=== PATIENT | female | born 1995 | race Caucasian/White ===

== ENCOUNTER 2021-09-06 15:36 | Emergency (ER) | payer MEDICAID, OTHER ==
[~2021-09-06] VITALS: Ht 157.5 cm; Wt 94.1 kg
[2021-09-06 16:34] LABS: BASOPHILS % (AUTO) 0.3 % (0-1); EOSINOPHILS # (AUTO) 0.5 X10'3 (0-0.9); EOSINOPHILS % (AUTO) 3.2 % (0-6); HEMATOCRIT 43.3 % (35.0-45.0); HEMOGLOBIN 14.5 g/dl (12.0-16.0); LYMPHOCYTES # (AUTO) 3.1 X10'3 (1.1-4.8); LYMPHOCYTES % (AUTO) 20.9 % (21-51); MEAN CORPUSCULAR HEMOGLOBIN 31.3 PG (27.0-31.0); MEAN CORPUSCULAR HGB CONC 33.4 g/dL (33.0-36.5); MEAN CORPUSCULAR VOLUME 93.9 FL (78-98); MEAN PLATELET VOLUME 9.7 FL (7.4-10.4); MONOCYTES # (AUTO) 0.8 X10'3 (0-0.9); MONOCYTES % (AUTO) 5.3 % (2-12); NEUTROPHILS # (AUTO) 10.4 X10'3 (1.8-7.7); NEUTROPHILS % (AUTO) 70.3 % (42-75); PLATELET COUNT 267 X10'3 (140-440); RED BLOOD COUNT 4.62 X10'6 (4.20-5.60); WHITE BLOOD COUNT 14.7 X10'3 (4.5-11.0)
[2021-09-06 16:44] LABS: HCG SERUM QL POSITIVE
[2021-09-06 16:58] LABS: ALANINE AMINOTRANSFERASE 29 U/L (12-78); ALBUMIN 3.8 G/DL (3.4-5.0); ALKALINE PHOSPHATASE 65 IU/L (46-116); ANION GAP 8 (8-16); ASPARTATE AMINO TRANSFERASE 16 U/L (10-37); BILIRUBIN,TOTAL 0.6 MG/DL (0.1-1.0); BLOOD UREA NITROGEN 6 MG/DL (7-18); BUN/CREATININE RATIO 12.5 (6.6-38.0); CALCIUM 9.3 MG/DL (8.5-10.1); CHLORIDE 104 MMOL/L (99-107); CREATININE 0.48 MG/DL (0.40-0.90); GLUCOSE 97 MG/DL (70-104); POTASSIUM 4.1 MMOL/L (3.5-5.1); SODIUM 139 MMOL/L (135-145); TOTAL CARBON DIOXIDE 26.6 MMOL/L (24-32); TOTAL PROTEIN 7.5 G/DL (6.4-8.2); eGFR > 90 ML/MIN
[2021-09-06 17:26] LABS: BETA HCG,QUANTITATIVE 15836 mIU/ml
[2021-09-06 18:22] LABS: CLARITY,URINE CLEAR (Clear); COLOR,URINE YELLOW (Yellow); GLUCOSE, URINE NEGATIVE (Neg); KETONES,URINE NEGATIVE (Neg); LEUKOCYTE ESTERASE ,URINE SMALL (Neg); NITRITES, URINE NEGATIVE (Neg); OCCULT BLOOD,URINE LARGE (Neg); PROTEIN,URINE NEGATIVE (Neg); UROBILINOGEN,URINE 0.2 E.U/dL (0.2-1.0)
[2021-09-06 18:26] LABS: UA COLLECTION TYPE CLN CATCH MIDSTREAM
[2021-09-06 18:41] LABS: BACTERIA,URINE FEW /HPF (Neg); MUCUS STRANDS FEW /LPF (Neg); SQUAMOUS EPITHELIAL CELL,UR MODERATE /LPF (FEW)
[2021-09-06 18:42] LABS: TRANSITIONAL EPI CELLS,URINE FEW /HPF
--- NOTE | 2021-09-06 20:18 | NUR ---
PHONE CALL FROM KRISTIN MERCHANT FROM [facility] TO GET INFORMATION ON PT FOR TRANSFER. SHE STATES SHE WILL CALL BACK ABOUT A BED.
--- NOTE | 2021-09-06 20:55 | NUR ---
LARY FROM [facility] CALLED FOR AN UPDATE
--- NOTE | 2021-09-06 21:09 | NUR ---
PATIENT C/O VAGINAL BLEED X 1 MONTH, DENIES PAIN. TOLD WITH 24HRS. . [facility] 07/09/2021. AWAITING TRANSFER [facility].
--- NOTE | 2021-09-06 23:15 | NUR ---
Patient aware of ETA 1 hr by [employer].
[2021-09-07 00:41] VITALS: BP 106/59
== END 2021-09-07 00:52 | disposition hospice, inpatient (51) ==
LOC: ER 15:37
DX: O20.8 Other hemorrhage in early pregnancy (principal); Z20.822 Contact with and (suspected) exposure to COVID-19; Z3A.01 Less than 8 weeks gestation of pregnancy
CPT/HCPCS: 36415; 76817; 80053; 81001; 84702; 84703; 85025; 86900; 86901; 87088; 87635; 99285; C9803

== ENCOUNTER 2022-12-11 12:28 | Emergency (ER) | payer MEDICAID ==
[~2022-12-11] VITALS: Ht 157.5 cm; Wt 92.6 kg
[2022-12-11 13:27] LABS: BASOPHILS % (AUTO) 0.3 % (0-1); EOSINOPHILS # (AUTO) 0.4 X10'3 (0-0.9); EOSINOPHILS % (AUTO) 5.2 % (0-6); HEMATOCRIT 43.7 % (35.0-45.0); HEMOGLOBIN 14.5 g/dl (12.0-16.0); LYMPHOCYTES # (AUTO) 2.1 X10'3 (1.1-4.8); LYMPHOCYTES % (AUTO) 27.6 % (21-51); MEAN CORPUSCULAR HEMOGLOBIN 30.7 PG (27.0-31.0); MEAN CORPUSCULAR HGB CONC 33.1 g/dL (33.0-36.5); MEAN CORPUSCULAR VOLUME 92.6 FL (78-98); MEAN PLATELET VOLUME 9.5 FL (7.4-10.4); MONOCYTES # (AUTO) 0.3 X10'3 (0-0.9); MONOCYTES % (AUTO) 3.9 % (2-12); NEUTROPHILS # (AUTO) 4.9 X10'3 (1.8-7.7); PLATELET COUNT 256 X10'3 (140-440); RED BLOOD COUNT 4.72 X10'6 (4.20-5.60); WHITE BLOOD COUNT 7.8 X10'3 (4.5-11.0)
[2022-12-11 13:42] LABS: ALANINE AMINOTRANSFERASE 96 U/L (12-78); ALBUMIN 3.6 G/DL (3.4-5.0); ALBUMIN/GLOBULIN RATIO 1.1 (1.1-1.5); ALKALINE PHOSPHATASE 95 IU/L (46-116); ANION GAP 10 (8-16); ASPARTATE AMINO TRANSFERASE 36 U/L (10-37); BILIRUBIN,TOTAL 0.3 MG/DL (0.1-1.0); BLOOD UREA NITROGEN 7 MG/DL (7-18); BUN/CREATININE RATIO 11.3 (10.0-20.0); CHLORIDE 106 MMOL/L (99-107); CREATININE 0.62 MG/DL (0.40-0.90); GLUCOSE 98 MG/DL (70-104); LIPASE 76 U/L (73-393); POTASSIUM 3.6 MMOL/L (3.5-5.1); SODIUM 144 MMOL/L (135-145); TOTAL CARBON DIOXIDE 28.5 MMOL/L (24-32); eGFR > 90 ML/MIN
[2022-12-11 13:49] LABS: CLARITY,URINE CLEAR (Clear); COLOR,URINE YELLOW (Yellow); GLUCOSE, URINE NEGATIVE (Neg); KETONES,URINE NEGATIVE (Neg); LEUKOCYTE ESTERASE ,URINE NEGATIVE (Neg); NITRITES, URINE NEGATIVE (Neg); OCCULT BLOOD,URINE NEGATIVE (Neg); PROTEIN,URINE NEGATIVE (Neg); UROBILINOGEN,URINE 0.2 E.U/dL (0.2-1.0)
[2022-12-11 13:50] LABS: UA COLLECTION TYPE CLN CATCH MIDSTREAM
[2022-12-11 13:51] LABS: URINE HCG NEGATIVE (NEG)
--- NOTE | 2022-12-11 17:06 | NUR ---
Patient arrived to ER bed 1 with her infant (1.5 months old). deburr technician currently at bedside
--- NOTE | 2022-12-11 17:20 | NUR ---
Pateint holding her baby next to her. Patient was advised to watch her baby and that if she feel too sleepy she can put her baby on a car seat and buckled up so the baby don't fall. Patient verbalized understanding
[2022-12-11 17:31] VITALS: BP 99/52
== END 2022-12-11 18:11 | disposition home or self-care (01) ==
LOC: ER 12:28
DX: K80.20 Calculus of gallbladder without cholecystitis without obstruction (principal)
CPT/HCPCS: 36415; 76700; 80053; 81003; 81025; 83690; 85025; 99284

== ENCOUNTER 2023-03-02 00:40 | Emergency (ER) | payer MEDICAID ==
[~2023-03-02] VITALS: Ht 157.5 cm; Wt 92.7 kg
[2023-03-02 00:46] VITALS: BP 145/97; PULSE 72; RESP 16; O2SAT 98
[2023-03-02 01:20] LABS: URINE HCG NEGATIVE (NEG)
[2023-03-02 01:23] LABS: BILIRUBIN,URINE SMALL (Neg); GLUCOSE, URINE NEGATIVE (Neg); KETONES,URINE NEGATIVE (Neg); LEUKOCYTE ESTERASE ,URINE NEGATIVE (Neg); NITRITES, URINE NEGATIVE (Neg); OCCULT BLOOD,URINE NEGATIVE (Neg); PH,URINE 6.5 (4.8-8.0); PROTEIN,URINE TRACE mg/dl (Neg)
[2023-03-02 01:27] LABS: MEAN PLATELET VOLUME 10.1 FL (7.4-10.4)
[2023-03-02 01:28] LABS: ALANINE AMINOTRANSFERASE 167 U/L (12-78); ALBUMIN/GLOBULIN RATIO 1.1 (1.1-1.5); ALKALINE PHOSPHATASE 115 IU/L (46-116); ANION GAP 6 (8-16); ASPARTATE AMINO TRANSFERASE 122 U/L (10-37); BILIRUBIN,TOTAL 0.5 MG/DL (0.1-1.0); BLOOD UREA NITROGEN 18 MG/DL (7-18); BUN/CREATININE RATIO 26.9 (10.0-20.0); CALCIUM 9.4 MG/DL (8.5-10.1); CHLORIDE 104 MMOL/L (99-107); CREATININE 0.67 MG/DL (0.40-0.90); GLUCOSE 99 MG/DL (70-104); LIPASE 79 U/L (73-393); POTASSIUM 3.4 MMOL/L (3.5-5.1); SODIUM 141 MMOL/L (135-145); TOTAL PROTEIN 7.6 G/DL (6.4-8.2); eCRCL 99 ML/MIN; eGFR > 90 ML/MIN
[2023-03-02 01:29] LABS: HEMATOCRIT 43.3 % (35.0-45.0); HEMOGLOBIN 14.9 g/dl (12.0-16.0); MEAN CORPUSCULAR HGB CONC 34.4 g/dL (33.0-36.5); MEAN CORPUSCULAR VOLUME 93.1 FL (78-98); PLATELET COUNT 261 X10'3 (140-440); RED BLOOD COUNT 4.65 X10'6 (4.20-5.60); RED CELL DISTRIBUTION WIDTH 13.5 % (11.5-14.5)
[2023-03-02 01:33] LABS: CLARITY,URINE SLIGHTLY CLOUDY (Clear); COLOR,URINE DARK YELLOW (Yellow); UA COLLECTION TYPE CLN CATCH MIDSTREAM
[2023-03-02 01:40] LABS: BACTERIA,URINE FEW /HPF (Neg); MUCUS STRANDS FEW /LPF (Neg); SQUAMOUS EPITHELIAL CELL,UR FEW /LPF (FEW)
[2023-03-02 02:51] LABS: LARGE PLATELETS FEW; PLATELET ESTIMATE NORMAL; TOTAL CELLS COUNTED 100
== END 2023-03-02 05:50 | disposition left against medical advice (07) ==
LOC: ER 00:40
DX: R10.9 Unspecified abdominal pain (principal); Z53.21 Procedure and treatment not carried out due to patient leaving prior to being seen by health care provider
CPT/HCPCS: 36415; 80053; 81001; 81025; 83690; 85007; 85025; 87088; 99281

== ENCOUNTER → 2023-12-06 | Outpatient (CLI) | payer MEDICAID | END | disposition home or self-care (01) | LOC: RAD 15:55 | PROVIDERS: ATTEND Nurse Practitioner Obstetrics & Gynecology | DX: O09.92 Supervision of high risk pregnancy, unspecified, second trimester (principal); Z3A.25 25 weeks gestation of pregnancy | CPT/HCPCS: 76811 ==

== ENCOUNTER 2025-01-17 14:27 | Emergency (ER) | payer MEDICAID, SELFPAY ==
[~2025-01-17] VITALS: Ht 157.5 cm; Wt 104.3 kg
[2025-01-17 14:37] VITALS: BP 123/73; PULSE 83; RESP 16; TEMP 98.1; O2SAT 99
--- NOTE | 2025-01-17 14:47 | Physician Documentation ---
History of Present Illness ~ Chief Complaint: Ear Pain Stated Complaint: EAR PAIN Time Seen by MD: 14:42 OK to notify your PCP?: Yes Primary Medical Doctor: n/a Source: patient Mode of Arrival: POV Exam Limitations: no limitations HPI 29-year-old female presents with bilateral ear pain and a sensation that she feels under water with her hearing for the past few days. She is recently getting over an upper respiratory illness and still has some sinus congestion. She has not tried any medications [id number] for her symptoms. As knee fe vers or any discharge out of her ears. Also has not been swimming lately. Medication Reconciliation Allergies: Coded Allergies: No Known Allergies (Unverified , 03/02/23) Past Medical History Past Medical History: *RENAL/* Past Surgical History: other Other Past Surgical History: Left oopherectomy Alcohol Use: None Drug Use: none Lives with: Family Lives In: Home Review of Systems All Other Systems at this time: Reviewed and Negative Physical Exam Vital Signs: RN Vital Signs have been reviewed: Yes, Temperature: 98.1, Source: Temporal, Heart Rate: 83, Respiratory Rate: 16, BP: 123/73, Pulse Oximetry: 99, Weight: 104.300 Oxygen Flow Rate: 0 Pulse Oximetry Reflects: adequate oxygenation Physical Exam General: Alert, no distress. HEENT: No injection, moist mucous membranes. Bilateral TM bulging, but clear fluid. No erythema or external drainage. Neck: Full range of motion. Respiratory: No respiratory distress, equal chest rise and fall. Chest: No accessory muscle use. Cardiovascular: Regular rate and rhythm. Gastrointestinal: Nondistended. Extremities: Normal range of motion, no deformity. Neurologic: Oriented x4. Psychiatric: Normal mood and affect. Skin: Normal color, warm and dry. Progress Results/Orders Results/Orders Vital Signs 01/17/25 14:37 Temp 98.1 Pulse 83 Resp 16 B/P (MAP) 123/73 Pulse Ox 99 O2 Flow Rate 0 Medical Decision Making Additional info obtained from: old records Findings 29-year-old female presents with bilateral ear pain and fullness after recent viral illness. Physical exam shows bilateral otitis media with effusion but no signs or symptoms of infection. We discussed that there is no indication for antibiotics at this time and that this can take up to 6-12 weeks to fully resolve. She does not have any Flonase at home so I sent a prescription for Daniel nase to her pharmacy. She should follow up with her primary care provider within the next week and return back here for any new or worsening symptoms. Departure Disposition: 01 HOME / SELF CARE / HOMELESS Impression: Primary Impression: Bilateral otitis media with effusion Discharge Instructions: Otitis Media, Adult Additional Instructions: As discussed it can take 6-12 weeks for the fluid in ears to fully resolve go back to normal levels. Please follow up with her primary care provider in the next week and return back here for any new or worsening symptoms. Use the Flonase to help decrease the inflammation and allow this fluid to drain quicker. If you notice that you having any fevers, worsening hearing, worsening ear pain, please be seen immediately. Referrals: NO PRIMARY CARE PROVIDER (PCP) Prescriptions Fluticasone Propionate (Flonase) 16 Gm [place].susp 2 SPRAYS BOTHNARES DAILY for 30 Days, #16 GM Prov: NADEGE WARREN 01/17/25 Education Educated: Patient Educated regarding: diagnosis, treatment, prognosis, need for follow up Additional Comment Medical Screen Exam This patient recieved a medical screening examination. After reviewing the individual's medical complaints with presenting symptoms and performing an appropriate physical examination, it was determined that no immediate life- threatening emergency medical condition is present. This individual is also not a women having contractions. Signature Scribe Signature: . Attestation: Scribed for Emergency,Department by Nadege Dyer NP . 01/17/25 14:50 Parts of this note were created using [employer] voice recognition software program. While efforts were made to correct any mistakes made by this voice recognition software program, nonsensical phrases may remain in this note. In addition, there may be errors and syntax, grammar, content and spelling. NADEGE WARREN Jan 17, 2025 14:47
[2025-01-17] MEDS ORDERED: FLUT16SP2 BOTHNARES (14:48)
== END 2025-01-17 15:01 | disposition home or self-care (01) ==
LOC: ER 14:27
DX: H65.93 Unspecified nonsuppurative otitis media, bilateral (principal); R09.81 Nasal congestion
CPT/HCPCS: 99282